=== PATIENT | female | born 1970 | race Caucasian/White ===

== ENCOUNTER 2017-04-19 09:57 | Emergency (ER) | payer MEDICAID ==
[2017-04-19 11:17] VITALS: RESP 16; TEMP 98.4
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
[2017-04-19 13:11] VITALS: BP 155/83; PULSE 74; O2SAT 95
== END 2017-04-19 12:49 | disposition home or self-care (01) ==
LOC: CED 09:57
DX: F41.9 Anxiety disorder, unspecified (principal); Z87.891 Personal history of nicotine dependence

== ENCOUNTER → 2017-11-19 | Outpatient (CLI) | payer MEDICAID | LOC: CIMAGING 12:48 | PROVIDERS: ATTEND Family Medicine | DX: M79.641 Pain in right hand (principal); M79.89 Other specified soft tissue disorders | CPT/HCPCS: 73110-PO; 73130-PO ==